=== PATIENT | female | born 1980 | race Caucasian/White ===

== ENCOUNTER 2017-01-30 07:17 | Day surgery (SDC) | payer OTHER ==
[~2017-01-30] VITALS: Ht 160 cm; Wt 72.6 kg
[2017-01-30 07:43] VITALS: BP 134/60
[2017-01-30 09:41] VITALS: BP 116/70
== END 2017-01-30 10:10 | disposition home or self-care (01) ==
LOC: GI 07:17 → OR 09:30 → GI 10:10
PROVIDERS: Internal Medicine Gastroenterology
PROC: 0DB68ZX Excision of Stomach, Via Natural or Artificial Opening Endoscopic, Diagnostic (ICD-10-PCS; principal; 2017-01-30 08:00)
DX: K25.9 Gastric ulcer, unspecified as acute or chronic, without hemorrhage or perforation (principal); K29.81 Duodenitis with bleeding; B96.81 Helicobacter pylori [H. pylori] as the cause of diseases classified elsewhere; Z68.29 Body mass index [BMI] 29.0-29.9, adult
CPT/HCPCS: 43235; J1200; J1610; J2250; J2310; J3010; J3490